=== PATIENT | female | born 1995 | race Caucasian/White ===

== ENCOUNTER 2025-01-02 12:13 | Inpatient (IN) | payer OTHER, SELFPAY ==
[2025-01-02] VITALS (11 sets, daily range): BP systolic 87–116; BP diastolic 62–74; BMI 21.2
--- NOTE | 2025-01-02 07:03 | ED.GENMED ---
History of Present Illness
General
Chief Complaint: Abdominal Symptoms
Source: patient
Exam Limitations: none
Time Seen by Provider: 01/02/25 06:44
Nursing documentation reviewed up to this point in time: agreed with
History of Present Illness
History of Present Illness:
Patient presents to ED secondary to persistent nausea and vomiting, and inability to eat anything for the past 3 days. Patient states that her symptoms started with sore throat, fever, and intermittent cough. Patient's son tested positive for
influenza 2 weeks ago with similar symptoms. Denies chest pain. Denies back pain. Denies abdominal pain. Denies diarrhea. Denies recent travel. Patient does vape regularly, both nicotine and marijuana. In addition, patient currently is on
Suboxone therapy.
Past History
Past History
ED Past Medical History: None
ED Past Surgical History: None
Social History
Tobacco: Smoker
Alcohol: None
Personal: Single
Review of Systems
Review of Systems
Allergies reviewed?: Yes
Constitutional: Reports fever
EENT: Reports sore throat
Respiratory: Reports cough; Denies trouble breathing
Cardiac: Reports no symptoms
ABD/GI: Reports nausea and vomiting; Denies abdominal pain
Musculoskeletal: Reports no symptoms
Skin: Reports no symptoms
Neurological: Reports no symptoms; Denies dizzy or headache
Phy Exam
Physical Exam
Physical Exam:
Physical Exam
General: mild distress, not acutely ill. afebrile
Head: nc/at. eomi
Neck: supple. no meningeal signs. normal posterior pharynx
Heart: s1/s2 regular rate and rhythm, no murmur.
Lungs: no acute respiratory distress. clear bilaterally
Abdomen: normal bowel sounds. not tender. no distention
Neuro: alert and oriented x 3. no focal neurological deficits
Skin: no rash
Psychiatric: well kept. interactive and cooperative
Extremities: no edema. no calf tenderness.
Course
Orders/Labs/Results
Orders:
Orders
01/02/25 07:00
Albuterol Nebs [Ventolin Nebules] 2.5 mg INH R NOW STA
Guaifenesin/Codeine Solution [Robitussin AC] 10 ml PO NOW STA
Pantoprazole [Protonix IV] 40 mg IV NOW STA
Test Result ONCE
01/02/25 07:01
Electrocardiogram (*1) Urgent
Reason for Study: QTc Monitoring
0.9% Sodium Chloride 1000 ml [Nss] 1,000 ml IV BOLUS
Ketorolac [Toradol] 15 mg IV NOW STA
Ondansetron Injectable [Zofran] 4 mg IV NOW STA
01/02/25 07:05
Benzonatate [Tessalon Perles] 100 mg PO NOW STA
01/02/25 07:11
Complete Blood Count/With Diff Urgent
Comprehensive Metabolic Panel Urgent
HCG, Serum Qualitative Screen Urgent
Magnesium Urgent
Influenza A+B Rapid Molecular Urgent
NATHANIEL Source: Nasal Swab
Specimen Description:
01/02/25 07:46
Urinalysis Reflex To Culture Urgent
Date Specimen was Collected: 01/02/25
Time Specimen was Collected: 07:43
Urine Microscopic Reflex Cult Urgent
Urine Culture Urgent
NATHANIEL Source: U
Specimen Description:
Date Specimen was Collected: 01/02/25
Time Specimen was Collected: 07:43
01/02/25 08:08
0.9% Sodium Chloride 500 ml [Nss] 500 ml IV BOLUS
01/02/25 09:29
CR Chest - 2 Views Urgent
Comment:
Reason For Exam: cough/hypoxia
01/02/25 Lunch
Regular
0.9% Sodium Chloride 500 ml [Nss] 500 ml IV 100 mls/hr
01/02/25 11:07
Procalcitonin Urgent
PCT Algorithmm Indication: Respiratory
01/02/25 11:21
Admit/Transfer Patient As Directed
Co-Sign Provider:
Level of Care: Inpatient admission
Assign to:: Medical/Surgical
Physician / Group: Nolberto Ramos - Hospitalists
Diagnosis: Acute influenza B infection, community acquired pneumonia, hypoxia
Reason for Hospitalization: Acute influenza B infection, community acquired pneumonia, hypoxia - Tamiflu, IV
abx, O2
Expected length of stay greater than two midnights?: Yes
ELOS- Estimated Length of Stay in days: 2
I certify the patient meets the requirements for IP care: Yes
PRN Pain Medication Management As Directed
May give lesser potent ordered pain med per pt: Yes
preference::
Protocol:: Medication orders for pain may be administered in a
manner that supports deferring to patient preference
when the pt is:
- Requesting an ordered lesser potent pain medication.
Least to most potent pain medications are defined
as: acetaminophen < NSAID < tramadol < opioids
(morphine, oxycodone, hydromorphone).
- Requesting a lesser dose of the same medication IF
ORDERED.
- Requesting a less intrusive route of administration
if both routes are prescribed by the provider (PO <
IV).
01/02/25 11:22
Code Status As Directed
Resuscitation Status: Full Code
01/02/25 12:20
0.9% Sodium Chloride 1000 ml [Nss] 1,000 ml IV 100 mls/hr
Acetaminophen [Tylenol] 650 mg PO Q4HPRN PRN
Albuterol Nebs [Ventolin Nebules] 2.5 mg INH R Q4HPRN PRN
Benzonatate [Tessalon Perles] 100 mg PO TIDPRN PRN
Bisacodyl [Dulcolax] 10 mg RECTAL N90TGRA PRN
Docusate W/Senna [Senokot-S] 1 tablet PO BIDPRN PRN
Doxycycline [Vibramycin] 100 mg PO Q12
Guaifenesin [Mucinex] 1,200 mg PO Q12
Ondansetron Injectable [Zofran] 4 mg IV Q6HPRN PRN
Oseltamivir Phosphate [Tamiflu] 75 mg PO BID
Pantoprazole [Protonix] 40 mg PO DAILY
Polyethylene Glycol Powder [Miralax] 17 grams PO DAILYPRN PRN
buprenorphine-naloxone 1 film BUCCAL DAILY
01/02/25 12:20
MRSA Screen Routine
NATHANIEL Source: Nose
Specimen Description:
Respiratory Culture/Gram Stain Routine
NATHANIEL Source: Sputum
Specimen Description:
Activity As Directed
Activity Level: As Tolerated
Pneumatic Compression Sleeves As Directed
Type: Knee high
Precautions As Directed
Type of Precautions: Droplet
Vital Signs As Directed
Frequency: Per unit guidelines
Acapella [Rx Pep / Acapela] [RESP] Routine
Rx Incentive Spirometry [RESP] Routine
Frequency: q1h while awake
DX Deep Vein Thrombosis Video Routine
01/02/25 13:00
CefTRIAXone [Rocephin] 1,000 mg IV Q24H
01/03/25 06:00
Basic Metabolic Panel IN AM
Complete Blood Count/With Diff IN AM
01/04/25 06:00
Basic Metabolic Panel IN AM
Complete Blood Count/With Diff IN AM
01/05/25 06:00
Basic Metabolic Panel IN AM
Complete Blood Count/With Diff IN AM
Abnormal Lab Results
01/02/25 01/02/25 01/02/25
07:11 07:46 11:07
WBC 1.6 L* 10^3/uL
(4.8-10.8)
RBC 3.94 L 10^6/uL
(4.20-5.40)
Hct 35.3 L %
(37.0-47.0)
Plt Count 86 L 10^3/uL
(130-400)
MPV 11.8 H fL
(7.4-10.4)
Abs Immat Gran (auto) 0.1 H 10^3/uL
(0-0.05)
Absolute Neuts (auto) 1.2 L 10^3/uL
(1.4-6.5)
Absolute Lymphs (auto) 0.2 L 10^3/uL
(1.2-3.4)
Immature Gran % 4.3 H %
(0-0.5)
Lymphocytes % 12.8 L %
(20.5-51.1)
BUN 23 H mg/dl
(7-17)
Total Protein 6.2 L g/dl
(6.3-8.2)
Procalcitonin 3.32 H* ng/ml
(0.0-0.25)
Urine Ketones 3+ A
(Negative)
Ur Occult Blood Reflex 4+ A
(Negative)
Leukocyte Esterase Rfl 1+ A
(Negative)
Urine RBC 3-6 A /HPF
(0-2)
Urine Albumin (Reflex) 3+ A
(Neg - Trace)
01/02/25 07:11
01/02/25 07:11
Vital Signs
Initial and Last Documented VS:
Initial Vital Signs
Temp Pulse Resp BP Pulse Ox
97.2 F 84 22 100/66 92
01/02/25 06:39 01/02/25 06:39 01/02/25 06:39 01/02/25 06:39 01/02/25 06:39
Last Documented Vital Signs
Temp Pulse Resp BP Pulse Ox
99.9 F 84 22 95/64 97
01/02/25 07:30 01/02/25 06:39 01/02/25 06:39 01/02/25 10:00 01/02/25 13:45
MDM/Problems Addressed
MDM/Problems Addressed:
History and exam consistent with symptoms secondary to influenza B. Unfortunately, patient remains hypotensive and hypoxic, requiring supplemental oxygen. As such, patient will be admitted for further evaluation, including continue IV hydration
along with supplemental oxygen.
CXR reveals b/l pneumonia. Admitting team to order abx.
*EKG
Interpreted by ED Provider?: Yes
EKG Intrepretation Date: 01/02/25
Heart Rate: 80
Rate: normal
Rhythm: sinus
[place]: normal axis
Ischemia: non-specific ST changes
*Critical Care Note
Total Time (30-74mins, 75-104mins- exclusive of procedures): Not Applicable
ED Attending Note
-
Portions of this chart may have been created with voice recognition software.� Occasional wrong word or��sound alike� substitutions may have occurred due to the inherent limitations of voice recognition software.
Discharge Plan
Departure
Patient Disposition: Admit
Date of Disposition: 01/02/25
Time of Disposition: 09:33
Admit to: Telemetry
Presentation/result/management discussed w/ accepting MD/DO: Hospitalist
Discharge Problem:
Influenza B, Dehydration, Hypoxia, Pneumonia
Interventions
Interventions:
*Risk Screen - Suicide Last Done: 01/02/25 06:39
*General Assessment Last Done: 01/02/25 14:07
*Neglect/Abuse Screening Last Done: 01/02/25 06:39
*ED- Fall Risk Assessment Last Done: 01/02/25 14:07
*ED COVID-19 Vaccine History Last Done: 01/02/25 14:07
EP-Jnjomy-Cvxltxlzzr Assessment Last Done: 01/02/25 09:06
[2025-01-02] MEDS: PROTONIX IV 40 MG IV (07:16)
[2025-01-02] MEDS: TORADOL 15 MG IV ×2 (07:17→17:19)
[2025-01-02] MEDS: ZOFRAN 4 MG IV ×2 (07:17→16:47)
[2025-01-02] MEDS: NSS 1000 IV ×3 (07:17→23:53)
[2025-01-02] MEDS: VENTOLIN NEBULES 2.5 MG INH (07:18)
[2025-01-02 07:41] LABS: HCG, Serum Qualitative Screen Negative
[2025-01-02 07:46] LABS: ALT (SGPT) 20 U/L (0-35); AST (SGOT) 22 U/L (14-36); Albumin 3.8 g/dl (3.5-5.0); Alkaline Phosphatase 43 U/L (38-126); Blood Urea Nitrogen 23 mg/dl (7-17); Calcium 8.6 mg/dl (8.4-10.2); Carbon Dioxide 22 mmol/L (22-30); Chloride 103 mmol/L (98-107); Glucose 94 mg/dl (70-99); Magnesium 1.8 mg/dl (1.6-2.3); Potassium 3.8 mmol/L (3.5-5.1); Sodium 138 mmol/L (135-145); Total Bilirubin 0.8 mg/dl (0.2-1.3); Total Protein 6.2 g/dl (6.3-8.2); eGFR > 60.00
[2025-01-02] MEDS: TESSALON PERLES 100 MG PO (07:53)
[2025-01-02 08:15] LABS: Urine Albumin 3+ (Neg - Trace); Urine Bilirubin Negative (Negative); Urine Character Clear (Clear); Urine Color Yellow; Urine Glucose Negative (Negative); Urine Ketone 3+ (Negative); Urine Leukocyte 1+ (Negative); Urine Nitrite Negative (Negative); Urine Occult Blood 4+ (Negative); Urine Urobilinogen 1+ (Neg - 1+)
[2025-01-02 08:17] LABS: % Basophils 0.6 % (0-2); % Immature Granulocytes 4.3 % (0-0.5); % Lymphocytes 12.8 % (20.5-51.1); % Monocytes 7.9 % (1.7-9.3); % Neutrophils 74.4 % (42.2-75.2); Absolute Immature Granulocytes 0.1 10^3/uL (0-0.05); Absolute Lymphocytes 0.2 10^3/uL (1.2-3.4); Absolute Monocytes 0.1 10^3/uL (0.1-0.6); Absolute Neutrophils 1.2 10^3/uL (1.4-6.5); Hematocrit 35.3 % (37.0-47.0); Hemoglobin 12.2 g/dL (12.0-16.0); Mean Corp Hgb Conc. 34.6 g/dL (33.0-37.0); Mean Corpuscular Volume 89.6 fL (81.0-99.0); Mean Platelet Volume 11.8 fL (7.4-10.4); Nucleated Red Blood Cells % 0 %; Platelet Count 86 10^3/uL (130-400); Red Blood Cell Count 3.94 10^6/uL (4.20-5.40); Red Cell Dist. Width 11.9 % (11.5-14.5); White Blood Cell Count 1.6 10^3/uL (4.8-10.8)
[2025-01-02] MEDS: NSS 500 IV ×2 (08:31→10:36)
[2025-01-02 08:39] LABS: Urine Squamous Cell >30 /LPF (Few)
[2025-01-02 08:40] LABS: Urine Amorphous Seen
--- NOTE | 2025-01-02 11:15 | HPS.HSE ---
Family Physician
-
Family Physician: * NONE
Chief Complaint
-
fevers/cough/SOB
History of Present Illness
29 y/o F, hx of prior opioid abuse now maintained on Suboxone, presents to ER with nausea/vomiting and inability to eat for 3 days. Patient reports her 6 year old son was sick with influenza starting 2 week ago. On , she developed an acute
constellation of symptoms including SOB, cough, fevers >101, along with nausea/vomiting. She reports chest and body myalgias. No back pain. No abd pain or diarrhea. No travel. Does admit to ongoing use of Vape and also marijuana.
in ER, found to be hypoxic with multifocal pneumonia - admitted for further evaluation.
Medical History
Past Medical History
Past Medical History: Reports Other (prior opioid abuse now maintained on Suboxone)
Past Surgical History: Reports None
Social History
Tobacco: Smoker
Alcohol: None
Drug: Marijuana
Personal: Partner
Employment: Employed
Family History
Family History: Not pertinent
Allergies / Home Medications
Allergies reflects when Allergies were last updated in [facility].
Home Medications with original date entered in [facility]
Allergy/Medication List:
Allergies
Allergy/AdvReac Type Severity Reaction Status Date / Time
OPIATES Allergy Unknown Uncoded 01/02/25 06:43
Home Medications
Control 1 tab PO DAILY 01/02/25
buprenorphine 2 mg-naloxone 0.5 mg sublingual film 1 film buccal DAILY 01/02/25
Review of Systems
-
A 12 point ROS was completed and negative except as noted: Yes
Physical Exam
Vital Signs
Vital Signs
Temp Pulse Resp BP Pulse Ox
99.9 F 84 22 95/64 96
01/02/25 07:30 01/02/25 06:39 01/02/25 06:39 01/02/25 10:00 01/02/25 10:15
Physical Exam
General: Respiratory Distress (mild)
HEENT: NormoCephalic and Anicteric
Respiratory: Rhonchi
Cardiac: S1/S2 and Regular Rhythm
GI: Non Distended
Neuro: AO x 3
Psych: Calm
Laboratory Results
-
01/02/25 07:11
01/02/25 07:11
Laboratory Results
Total Bilirubin 0.8 mg/dl (0.2-1.3) 01/02/25 07:11
AST 22 U/L (14-36) 01/02/25 07:11
ALT 20 U/L (0-35) 01/02/25 07:11
Alkaline Phosphatase 43 U/L (38-126) 01/02/25 07:11
Data Reviewed
-
Diagnostic Radiology: Report Reviewed by me
Lab Data: Labs Reviewed by me
Impression/Plan
-
Assessment:
Acute hypoxic respiratory insufficiency on 2L NC
Acute Influenza B infection manifesting with GI symptoms
Acute community acquired pneumonia - unknown organisms
- wean O2 as able
- appropriate precautions
- IVF
- start Tamiflu x 5 days
- Start Rocephin, Doxy, day 1. Check sputum culture if able. Check MRSA swab.
- supportive care for pulm symptoms including anti-tussives, mucolytics, prn nebs
- supportive care for GI Symptoms including PPI daily And Zofran prn
Acute leukopenia and thrombocytopenia
- suspect in setting of influenza
- monitor daily CBC
Abnormal UA
- await culture
prior opioid abuse now maintained on Suboxone
- will continue
DVT ppx: SCDs
Code: Full
[2025-01-02 11:57] LABS: Procalcitonin 3.32 ng/ml (0.0-0.25)
[2025-01-02] MEDS: MUCINEX 1200 MG PO ×2 (13:02→20:57)
[2025-01-02] MEDS: PROTONIX 40 MG PO (13:02)
[2025-01-02] MEDS: TAMIFLU 75 MG PO ×2 (13:03→20:57)
[2025-01-02] MEDS: ROCEPHIN 1000 MG IV (13:03)
[2025-01-02] MEDS: VIBRAMYCIN 100 MG PO ×2 (13:03→20:57)
[2025-01-02] MEDS: STERILE WATER FOR INJECTION 10 ML IV (14:23)
[2025-01-02] MEDS: SUBUTEX SL (14:35)
[2025-01-03 07:50] VITALS: BP 124/76
[2025-01-03] MEDS: MUCINEX 1200 MG PO ×2 (08:33→19:36)
[2025-01-03] MEDS: SUBUTEX 2 MG SL (08:33)
[2025-01-03] MEDS: PROTONIX 40 MG PO (08:33)
[2025-01-03] MEDS: TAMIFLU 75 MG PO ×2 (08:33→19:36)
[2025-01-03] MEDS: VIBRAMYCIN 100 MG PO ×2 (08:33→19:36)
[2025-01-03 08:39] LABS: Blood Urea Nitrogen 13 mg/dl (7-17); Calcium 7.4 mg/dl (8.4-10.2); Carbon Dioxide 20 mmol/L (22-30); Chloride 109 mmol/L (98-107); Estimated Creatinine Clearance 112 ml/min; Glucose 81 mg/dl (70-99); Potassium 3.6 mmol/L (3.5-5.1); Sodium 138 mmol/L (135-145); eGFR > 60.00
[2025-01-03 08:43] LABS: Hematocrit 31.2 % (37.0-47.0); Hemoglobin 10.7 g/dL (12.0-16.0); Mean Corp Hgb Conc. 34.3 g/dL (33.0-37.0); Mean Corpuscular Hgb 31.2 pg (27.0-31.0); Mean Platelet Volume 11.8 fL (7.4-10.4); Platelet Count 78 10^3/uL (130-400); Red Blood Cell Count 3.43 10^6/uL (4.20-5.40); Red Cell Dist. Width 12.2 % (11.5-14.5); White Blood Cell Count 2.6 10^3/uL (4.8-10.8)
--- NOTE | 2025-01-03 09:18 | CON.PUL ---
Consultation
Consultation Request
Date/Time Consultation Requested: 01/03/25
Date/Time Consultation Performed: 01/03/25
Performing Provider: Genoveva
Reason for Consultation: Flu PNA
Medical History
-
History of Present Illness:
Patient is a 29-year-old female with previous history of opioid abuse now on Suboxone, former smoker presenting to ER with nausea/vomiting and decreased p.o. intake for the past 3 days. She does report sick contacts at home including her son who
has influenza, she was tested positive on admission. She has ongoing shortness of breath, cough, fevers. She denies any prior history of lung disease in the past. She is a former smoker about 1 pack a day for 15 years. She is currently vaping.
Chest x-ray demonstrating multifocal pneumonia.
Past Medical History
Past Medical History: Other (see list below)
Social History
Tobacco: Smoker (cigarettes x 15 pack years, now vaping NCT and THC)
Alcohol: None
Drug: Former User (on Suboxone)
Family History
Family History: Asthma
Allergies / Home Medications
Allergies
Allergy/AdvReac Type Severity Reaction Status Date / Time
OPIATES Allergy Unknown Uncoded 01/02/25 06:43
Home Medications
�Medication �Instructions �Recorded �Confirmed �Last Taken �Type
Control 1 tab PO DAILY 01/02/25 01/02/25 01/02/25 History
buprenorphine 2 mg-naloxone 0.5 mg 1 film buccal DAILY 01/02/25 01/02/25 01/02/25 History
sublingual film
Review of Systems
-
History Source: Patient
All other systems: Negative unless noted
Vitals / Labs / Diagnostic Testing
Vital Signs
Temp Pulse Resp BP Pulse Ox
98.6 F 55 16 124/76 97
01/03/25 07:50 01/03/25 07:50 01/03/25 07:50 01/03/25 07:50 01/03/25 07:50
Lab Data
01/03/25 07:38
01/03/25 07:38
Microbiology
01/02/25 07:11 Nasal Swab Influenza Types A & B (RITESH) - Final
Influenza B Positive, NAAT
Diagnostic Testing:
Physical Exam
-
HEENT: Normocephalic, Anicteric, Moist Mucous Membranes and Other (poor dentition)
Cardiovascular: S1/S2 and Regular Rhythm
Respiratory: Rhonchi and Non-Labored Respirations
GI: Soft, Non Distended and Non Tender
Neurology: Awake, Alert, Oriented and No Motor Deficits
Skin: Warm, Dry and Good Color
General: Comfortable and Other (NAD)
Assessment
-
Patient is a 29-year-old female with previous history of opioid abuse now on Suboxone, former smoker presenting to ER with nausea/vomiting and decreased p.o. intake for the past 3 days. She does report sick contacts at home including her son who
has influenza, she was tested positive on admission. She has ongoing shortness of breath, cough, fevers. She denies any prior history of lung disease in the past. She is a former smoker about 1 pack a day for 15 years. She is currently vaping.
Chest x-ray demonstrating multifocal pneumonia. We are consulted for evaluation.
Multifocal PNA, FluB positive, cannot r/o superimposed bacterial, PCT elevated
Acute hypoxic respiratory failure
Fever
Abnormal chest x-ray
Moderate to severe pancytopenia
Metabolic acidosis
Hypocalcemia
Conditions present prior to admission
History of IV drug use, now on Suboxone
Former smoker, 15 pack years
Family history of asthma
Plan
Hypoxemia noted on arrival, O2 jacklyn 85%
Currently saturating >90% on 5L
Home O2 evaluation eventually, not known to be on home O2
No prior known history of lung disease is noted-- she is a former smoker and has family history of asthma
Vaping now as well
no prior PFTs for review, at risk for lung disease given current smoking history
Suspect patient has viral and possible superimposed bacterial PNA given elevated PCT
She is treated empirically with Tamiflu and IV antibiotics/IV fluids
She does not have personal history of asthma, currently not wheezing on exam, can hold off on IV steroids
We will change her nebulizers to scheduled as well
Obtain sputum culture if able
Will also check urine Legionella and strep, agree with MRSA screening
Admission CXR obtained indicating mild multifocal patches, likely to blossom in the next 24 hours
We will repeat chest x-ray today
Other imaging reviewed--negative in 2010
If needed, may consider CT chest
No prior history of cardiac disease, no echo for review
Monitor on telemetry
Smoking history noted
Smoking cessation
She has history of IV drug use, no longer actively using
UDS showing +opiate, she is chronically on Suboxone
Monitor for withdrawal signs
Will need outpatient pulmonary evaluation in our office for PFTs and 6MWT
Reviewed with patient
We will follow
Diagnostic Data
Chest X-Ray: 01/02/25- Patchy and nodular opacities bilaterally suspicious for multifocal pneumonia. No pleural effusions. Follow-up imaging recommended to ensure resolution.
01/29/11- No radiographic findings.
CT Scan:
Echo:
PFT's:
Reports and relevant images were personally reviewed.
Total time spent on this consultation __75__ minutes which includes review of history, physical exam, medications, laboratory data, personal review of imaging, extensive review of outpatient records, discussion with care team and respiratory therapy.
[2025-01-03 10:54] LABS: % Basophils 0.4 % (0-2); % Immature Granulocytes 0.8 % (0-0.5); % Lymphocytes 22.5 % (20.5-51.1); % Monocytes 5.4 % (1.7-9.3); % Neutrophils 70.9 % (42.2-75.2); Absolute Lymphocytes 0.6 10^3/uL (1.2-3.4); Absolute Monocytes 0.1 10^3/uL (0.1-0.6); Absolute Neutrophils 1.8 10^3/uL (1.4-6.5); Nucleated Red Blood Cells % 0 %
--- NOTE | 2025-01-03 13:13 | CM ---
Met with patient and her significant other, Lonnie Rahman # [phone]
Pharmacy verified: [facility] @ [address] [facility], [place], [place]
Reported she does not have a Family Physician; provided contact information for the [facility] in [place]
Patient reported that she and Lonnie live in one floor apartment located in her parent's farm[place]; apartment on 1st floor of the home; 4 steps to enter; bath has tub w/shower, grab bar
PLOF: reported she was independent with ADLs prior to present illness; no device with ambulation; has a 6 year old son; drives
NO DME
NO SNF or Home Health utilization history
Significant other will transport home
Plan: Discharge to home when medically stable; no needs anticipated but Case Management will monitor and support if services needed at discharge
[2025-01-03] MEDS: STERILE WATER FOR INJECTION 10 ML IV (13:18)
[2025-01-03] MEDS: ROCEPHIN 1000 MG IV (13:19)
[2025-01-03] MEDS: TESSALON PERLES 100 MG PO (13:25)
[2025-01-03] MEDS: TORADOL 15 MG IV (13:40)
--- NOTE | 2025-01-03 14:14 | W.PN.HOSP.TC ---
Today's Communication/Plan
-
wean O2
repeat CXR
continue Tamiflu/IV Abx
Assessment / Plan
Assessment / Plan
Assessment:
Acute hypoxic respiratory failure, requiring up to 14L NC
Acute Influenza B infection manifesting with GI symptoms
Acute community acquired pneumonia - unknown organisms
- wean O2 as able; as high at 14L this admission. Currently 4L NC
- appropriate precautions
- continue Tamiflu x 5 days
- continue Rocephin, Doxy, day 2. Procal >3.
- check strep/legionella
- check sputum culture if able. MRSA swab pending.
- supportive care for pulm symptoms including anti-tussives, mucolytics, prn nebs
- supportive care for GI Symptoms including PPI daily And Zofran prn
- pulm following; recs appreciated
- repeat CXR today
Acute leukopenia and thrombocytopenia
- suspect in setting of influenza
- monitor daily CBC
Abnormal UA
- culture negative
prior opioid abuse now maintained on Suboxone
- will continue; monitor for withdrawal
DVT ppx: SCDs
Code: Full
Anticipated Discharge: 24 - 48 hours
Subjective/Interval History
-
Date of Service: January 03, 2025
reports chest/abd discomfort with ongoing coughing
now down to 3L (as high as 14L last night)
reports nausea improving, appetite remains low
Objective Data
-
Labs:
Laboratory Results
01/03/25
07:38
WBC 2.6 L
Hgb 10.7 L
Hct 31.2 L
Plt Count 78 L
Sodium 138
Potassium 3.6
Chloride 109 H
Carbon Dioxide 20 L
BUN 13
Creatinine 0.5 L
Glucose 81
Calcium 7.4 L
Vital Signs:
Vital Signs
Temp Pulse Resp BP Pulse Ox
98.6 F 55 16 124/76 99
01/03/25 07:50 01/03/25 07:50 01/03/25 07:50 01/03/25 07:50 01/03/25 09:50
I&O
01/02/25 01/03/25 01/04/25
06:59 06:59 06:59
Intake Total 240 / 240
Balance 240 / 240
Physical Exam
-
General: No Apparent Distress
HEENT: Normocephalic and Atraumatic
Respiratory: Rhonchi; Negative Wheezes
Cardiac: Regular Rhythm and S1/S2
GI: Soft
Genito-urinary: No Costovertebral Tender
Neuro: AO x 3
Hematologic / Lymphatic: No Lymphadenopathy
Psych: Calm
Data Reviewed
-
Total Time Spent with Patient (in minutes): 45
Labs: Labs Reviewed by me
--- NOTE | 2025-01-03 15:23 | PN.CDI ---
CDI
- -
CDI:
Physician Documentation Request
Admit Date: 01/02/25 12:13
Dear Doctor Richard,
Please review the following and provide your response in the progress notes.
Clinical Indicators:
PN, 01/03
#Acute hypoxic respiratory failure, requiring up to 14L NC
#Acute Influenza B infection manifesting with GI symptoms
#Acute community acquired pneumonia - unknown organisms
#...- wean O2 as able; as high at 14L this admission. Currently 4L NC
#Acute leukopenia and thrombocytopenia
#...- suspect in setting of influenza
Laboratory Tests
01/02/25 01/03/25
07:11 07:38
WBC 1.6 L* 2.6 L
Selected Entries
01/02/25
16:50 01/02/25
18:45
Temp 101.6 F H
Pulse 106
Based on the above and your clinical assessment, please Please clarify which of the following most accurately describes the status of the patient's infection:
Sepsis, POA
Localized Infection Only, Without Systemic Illness
- indicate the site/source, such as UTI, pneumonia etc.
Other(please specify)
Sepsis
- Systemic manifestations of infection, with 2 or more SIRS criteria which include:
- Fever >100.9 degrees F or hypothermia < 96.8 degrees F
- Leukocytosis - WBC > 12,000 or leukopenia - WBC < 4,000 or > 10% bands
- Tachycardia > 90 beats per minute
- Tachypnea - RR > 20 breaths per minute or PaCO2 , 32mmHg
Source: Merck Manual 2013
- Indicate the known or suspected organism
- Indicate the known or suspected underlying infection, such as UTI, pneumonia or cellulitis
Severe Sepsis
- Sepsis with associated acute organ dysfunction, such as renal or respiratory failure
- Documentation should indicate the association between the sepsis and the organ dysfunction
Use of terms such as suspected, likely, concern for, or probable (associated with a specific diagnosis that is being evaluated, monitored, or treated as if it exists) are acceptable and can be coded in the inpatient setting, when documented at the
time of discharge.
Thank you,
Corry Umanzor RN BSN CCDS
CDI Specialist
Please contact via tiger text
Please use your independent medical judgment in providing your response.
[2025-01-03 15:35] VITALS: BP 132/58
[2025-01-03] MEDS: VENTOLIN NEBULES 2.5 MG INH ×2 (16:13→19:47)
[2025-01-03 23:54] VITALS: BP 121/72
[2025-01-04] MEDS: ZOFRAN 4 MG IV ×2 (02:30→22:31)
[2025-01-04] MEDS: TESSALON PERLES 100 MG PO ×4 (02:30→22:32)
[2025-01-04 07:15] VITALS: BP 130/69
[2025-01-04] MEDS: VENTOLIN NEBULES 2.5 MG INH ×4 (07:21→19:30)
[2025-01-04] MEDS: SUBUTEX 2 MG SL (08:02)
[2025-01-04] MEDS: TAMIFLU 75 MG PO ×2 (08:02→20:56)
[2025-01-04] MEDS: VIBRAMYCIN 100 MG PO ×2 (08:02→20:56)
[2025-01-04] MEDS: MUCINEX 1200 MG PO ×2 (08:02→20:55)
[2025-01-04] MEDS: TORADOL 15 MG IV ×2 (08:02→14:08)
[2025-01-04] MEDS: PROTONIX 40 MG PO (08:02)
--- NOTE | 2025-01-04 08:39 | W.PN.HOSP.TC ---
Today's Communication/Plan
-
repeat labs tomorrow
continue Abx/Tamiflu
Assessment / Plan
Assessment / Plan
Assessment:
Sepsis POA (tachycardia, fever, leukopenia)
- resolving
Acute hypoxic respiratory failure, requiring up to 14L NC
Acute Influenza B infection manifesting with GI symptoms
Acute community acquired pneumonia - unknown organisms
- wean O2 as able; as high at 14L this admission. Currently 4L NC
- appropriate precautions
- continue Tamiflu x 5 days
- continue Rocephin, Doxy, day 3. Procal >3.
- supportive care for pulm symptoms including anti-tussives, mucolytics, prn nebs
- supportive care for GI Symptoms including PPI daily And Zofran prn
- pulm following; recs appreciated
Acute leukopenia and thrombocytopenia
- suspect in setting of influenza
- monitor daily CBC
Abnormal UA
- culture negative
prior opioid abuse now maintained on Suboxone
- will continue; monitor for withdrawal
DVT ppx: SCDs
Code: Full
Anticipated Discharge: Within 24 hours
Subjective/Interval History
-
Date of Service: January 04, 2025
SOB improved
chest discomfort related to cough improved
now on RA
Objective Data
-
Labs:
Laboratory Results
01/04/25
07:56
WBC Pending
Hgb Pending
Hct Pending
Plt Count Pending
Sodium Pending
Potassium Pending
Chloride Pending
Carbon Dioxide Pending
BUN Pending
Creatinine Pending
Glucose Pending
Calcium Pending
Vital Signs:
Vital Signs
Temp Pulse Resp BP Pulse Ox
98 F 59 16 130/69 97
01/04/25 07:15 01/04/25 07:15 01/04/25 07:15 01/04/25 07:15 01/04/25 07:15
I&O
01/03/25 01/04/25 01/05/25
06:59 06:59 06:59
Intake Total 240 / 240 1560 / 1560
Balance 240 / 240 1560 / 1560
Physical Exam
-
General: No Apparent Distress
HEENT: Normocephalic and Atraumatic
Respiratory: Rhonchi; Negative Wheezes
Cardiac: Regular Rhythm and S1/S2
GI: Soft
Genito-urinary: No Costovertebral Tender
Neuro: AO x 3
Psych: Calm
Data Reviewed
-
Total Time Spent with Patient (in minutes): 42
Labs: Labs Reviewed by me
[2025-01-04 08:55] LABS: % Basophils 0.5 % (0-2); % Immature Granulocytes 2.2 % (0-0.5); % Lymphocytes 31.3 % (20.5-51.1); Absolute Lymphocytes 0.6 10^3/uL (1.2-3.4); Absolute Monocytes 0.1 10^3/uL (0.1-0.6); Absolute Neutrophils 1.1 10^3/uL (1.4-6.5); Hemoglobin 12.5 g/dL (12.0-16.0); Mean Corp Hgb Conc. 34.7 g/dL (33.0-37.0); Mean Corpuscular Hgb 30.8 pg (27.0-31.0); Mean Corpuscular Volume 88.7 fL (81.0-99.0); Mean Platelet Volume 11.1 fL (7.4-10.4); Nucleated Red Blood Cells % 0 %; Platelet Count 111 10^3/uL (130-400); Red Blood Cell Count 4.06 10^6/uL (4.20-5.40); White Blood Cell Count 1.8 10^3/uL (4.8-10.8)
--- NOTE | 2025-01-04 09:08 | W.PN.PUL3 ---
Today's Communication / Plan
-
Feeling better, weaned to RA
CXR showing slight worsening findings but she is clinically improving, can repeat as OP
Continue IV abx, sputum contaminated, not sent, complete empiric course
Encouraged airway clearance, OOB
Can continue nebs/mucinex at discharge
Discharge planning if doing well in 24 hours, following also repeat CBC
We will arrange OP FU
Assessment
-
Patient is a 29-year-old female with previous history of opioid abuse now on Suboxone, former smoker presenting to ER with nausea/vomiting and decreased p.o. intake for the past 3 days. She does report sick contacts at home including her son who
has influenza, she was tested positive on admission. She has ongoing shortness of breath, cough, fevers. She denies any prior history of lung disease in the past. She is a former smoker about 1 pack a day for 15 years. She is currently vaping.
Chest x-ray demonstrating multifocal pneumonia. We are consulted for evaluation.
Multifocal PNA, FluB positive, cannot r/o superimposed bacterial, PCT elevated
Acute hypoxic respiratory failure
Fever
Abnormal chest x-ray
Moderate to severe pancytopenia
Metabolic acidosis
Hypocalcemia
Conditions present prior to admission
History of IV drug use, now on Suboxone
Former smoker, 15 pack years
Family history of asthma
Plan
Hypoxemia noted on arrival, O2 jacklyn 85%
Initially saturating >90% on 5L--she is now weaned to RA
Home O2 evaluation eventually, not known to be on home O2
No prior known history of lung disease is noted-- she is a former smoker and has family history of asthma
Vaping now as well
No prior PFTs for review, at risk for lung disease given current smoking history
Suspect patient has viral and possible superimposed bacterial PNA given elevated PCT
She is treated empirically with Tamiflu and IV antibiotics/IV fluids
She does not have personal history of asthma, currently not wheezing on exam, can hold off on IV steroids
Continue nebulizers scheduled
Sputum culture if able--specimen contaminated
MRSA neg
Admission CXR obtained indicating mild multifocal patches, likely to blossom in the next 24 hours
We will repeat chest x-ray today--reviewed, mildly worsening/she is clinically improving
Other imaging reviewed--negative in 2010
Can repeat imaging as OP
No prior history of cardiac disease, no echo for review
Monitor on telemetry
Smoking history noted
Smoking cessation
She has history of IV drug use, no longer actively using
UDS showing +opiate, she is chronically on Suboxone
Monitor for withdrawal signs
Will need outpatient pulmonary evaluation in our office for PFTs and 6MWT
Reviewed with patient
Discharge planning in next 24 hours
Diagnostic Data
Chest X-Ray: 01/02/25- Patchy and nodular opacities bilaterally suspicious for multifocal pneumonia. No pleural effusions. Follow-up imaging recommended to ensure resolution.
01/29/11- No radiographic findings.
CT Scan:
Echo:
PFT's:
Reports and relevant images were personally reviewed.
Total time spent on this consultation __51__ minutes which includes review of history, physical exam, medications, laboratory data, personal review of imaging, extensive review of outpatient records, discussion with care team and respiratory therapy.
Subjective Data
-
Date of Service:
Date of Service: January 04, 2025
Chief Complaint: Pulmonary Follow Up
Subjective:
Feeling better but not quite back to baseline
Coughing more productively
Weaned to RA
Objective Data
Data Reviewed
Vital Signs / I&O / Oxygen:
Vital Signs
Temp Pulse Resp BP Pulse Ox
98 F 59 16 130/69 97
01/04/25 07:15 01/04/25 07:15 01/04/25 07:15 01/04/25 07:15 01/04/25 07:15
Intake and Output
01/03/25 01/04/2501/05/25
06:59 06:59 06:59
Intake Total 240 / 240 1560 / 1560
Balance 240 / 240 1560 / 1560
SaO2 97
Nasal Cannula flow liters per 3
minute
Physical Exam
General: Comfortable and Other (NAD)
HEENT: Normocephalic, Anicteric, Moist Mucous Membranes and Other (poor dentition)
Cardiovascular: S1-S2 and Regular Rhythm
Respiratory: Rhonchi and Non-Labored Respirations
GI: Soft, Non Distended and Non Tender
Neurology: Awake, Alert, Oriented and No Motor Deficits
Skin: Warm, Dry and Good Color
Labs/Micro/Reports
Lab Data
01/04/25 07:56
Microbiology
01/04/25 03:16 Sputum Respiratory Culture - Final
01/04/25 03:16 Sputum Gram Stain - Final
01/02/25 17:22 Nose MRSA Screen - Final
No Methicillin Resistant Staphylococcus aureus isolated.
01/02/25 07:46 Urine Urine Culture - Final
No Significant Growth
01/02/25 07:11 Nasal Swab Influenza Types A & B (RITESH) - Final
Influenza B Positive, NAAT
[2025-01-04 09:12] LABS: Blood Urea Nitrogen 8 mg/dl (7-17); Calcium 8.2 mg/dl (8.4-10.2); Carbon Dioxide 19 mmol/L (22-30); Chloride 106 mmol/L (98-107); Estimated Creatinine Clearance 112 ml/min; Glucose 86 mg/dl (70-99); Potassium 3.2 mmol/L (3.5-5.1); Sodium 139 mmol/L (135-145); eGFR > 60.00
[2025-01-04] MEDS: STERILE WATER FOR INJECTION 10 ML IV (14:08)
[2025-01-04] MEDS: ROCEPHIN 1000 MG IV (14:08)
[2025-01-04 16:27] VITALS: BP 129/67
[2025-01-04 23:42] VITALS: BP 137/77
[2025-01-05] MEDS: ZOFRAN 4 MG IV (06:04)
[2025-01-05 06:41] LABS: Blood Urea Nitrogen 7 mg/dl (7-17); Calcium 8.4 mg/dl (8.4-10.2); Carbon Dioxide 19 mmol/L (22-30); Chloride 105 mmol/L (98-107); Estimated Creatinine Clearance 112 ml/min; Glucose 91 mg/dl (70-99); Potassium 3.5 mmol/L (3.5-5.1); Sodium 139 mmol/L (135-145); eGFR > 60.00
[2025-01-05 07:02] LABS: Hemoglobin 11.8 g/dL (12.0-16.0); Mean Corp Hgb Conc. 35.8 g/dL (33.0-37.0); Mean Corpuscular Hgb 31.6 pg (27.0-31.0); Mean Corpuscular Volume 88.2 fL (81.0-99.0); Mean Platelet Volume 10.5 fL (7.4-10.4); Platelet Count 148 10^3/uL (130-400); Red Blood Cell Count 3.74 10^6/uL (4.20-5.40); Red Cell Dist. Width 11.9 % (11.5-14.5); White Blood Cell Count 1.9 10^3/uL (4.8-10.8)
[2025-01-05 07:20] VITALS: BP 131/83
[2025-01-05] MEDS: VENTOLIN NEBULES INH (08:08)
[2025-01-05 08:17] LABS: % Basophils 0.5 % (0-2); % Eosinophils 0.5 % (0-6); % Immature Granulocytes 2.6 % (0-0.5); % Lymphocytes 34.5 % (20.5-51.1); % Monocytes 8.8 % (1.7-9.3); % Neutrophils 53.1 % (42.2-75.2); Absolute Immature Granulocytes 0.1 10^3/uL (0-0.05); Absolute Lymphocytes 0.7 10^3/uL (1.2-3.4); Absolute Monocytes 0.2 10^3/uL (0.1-0.6); Nucleated Red Blood Cells % 0 %
[2025-01-05] MEDS: VIBRAMYCIN 100 MG PO (08:57)
[2025-01-05] MEDS: SUBUTEX 2 MG SL (08:57)
[2025-01-05] MEDS: MUCINEX 1200 MG PO (08:57)
[2025-01-05] MEDS: TAMIFLU 75 MG PO (08:57)
[2025-01-05] MEDS: PROTONIX 40 MG PO (08:57)
--- NOTE | 2025-01-05 09:06 | W.PN.PUL3 ---
Today's Communication / Plan
-
Better in terms fo breathing but has nausea complaints, no vomiting
Will try Zofran tablets, so that this can be continued at home
Encouraged OOB/ambulation
We discussed OP FU at our office for next steps
Otherwise, d/c planning per team today
Assessment
-
Patient is a 29-year-old female with previous history of opioid abuse now on Suboxone, former smoker presenting to ER with nausea/vomiting and decreased p.o. intake for the past 3 days. She does report sick contacts at home including her son who
has influenza, she was tested positive on admission. She has ongoing shortness of breath, cough, fevers. She denies any prior history of lung disease in the past. She is a former smoker about 1 pack a day for 15 years. She is currently vaping.
Chest x-ray demonstrating multifocal pneumonia. We are consulted for evaluation.
Multifocal PNA, FluB positive, cannot r/o superimposed bacterial, PCT elevated
Acute hypoxic respiratory failure
Fever
Abnormal chest x-ray
Moderate to severe pancytopenia
Metabolic acidosis
Hypocalcemia
Conditions present prior to admission
History of IV drug use, now on Suboxone
Former smoker, 15 pack years
Family history of asthma
Plan
Hypoxemia noted on arrival, O2 jacklyn 85%, improved
Initially saturating >90% on 5L--she is now weaned to RA
No prior known history of lung disease is noted-- she is a former smoker and has family history of asthma
Vaping now as well
No prior PFTs for review, at risk for lung disease given current smoking history
Suspect patient has viral and possible superimposed bacterial PNA given elevated PCT
She is treated empirically with Tamiflu and IV antibiotics/IV fluids
She does not have personal history of asthma, currently not wheezing on exam, can hold off on IV steroids
Continue nebulizers scheduled
Sputum culture if able--specimen contaminated
MRSA neg
Admission CXR obtained indicating mild multifocal patches, likely to blossom in the next 24 hours
We will repeat chest x-ray today--reviewed, mildly worsening/she is clinically improving
Other imaging reviewed--negative in 2010
Can repeat imaging as OP
No prior history of cardiac disease, no echo for review
Monitor on telemetry
Smoking history noted
Smoking cessation
She has history of IV drug use, no longer actively using
UDS showing +opiate, she is chronically on Suboxone
Monitor for withdrawal signs
Nausea is noted, trial PO zofran to go home
Will need outpatient pulmonary evaluation in our office for PFTs and 6MWT
Reviewed with patient
Discharge planning
Diagnostic Data
Chest X-Ray: 01/02/25- Patchy and nodular opacities bilaterally suspicious for multifocal pneumonia. No pleural effusions. Follow-up imaging recommended to ensure resolution.
01/29/11- No radiographic findings.
CT Scan:
Echo:
PFT's:
Reports and relevant images were personally reviewed.
Total time spent on this consultation __41__ minutes which includes review of history, physical exam, medications, laboratory data, personal review of imaging, extensive review of outpatient records, discussion with care team and respiratory therapy.
Subjective Data
-
Date of Service:
Date of Service: January 05, 2025
Chief Complaint: Pulmonary Follow Up
Subjective:
Better today in terms of SOB but still feels nauseous
This is not causing her any trouble w/ PO intake
She notes that she gets this way anytime she is ill
Objective Data
Data Reviewed
Vital Signs / I&O / Oxygen:
Vital Signs
Temp Pulse Resp BP Pulse Ox
98.4 F 59 16 131/83 97
01/05/25 07:20 01/05/25 07:20 01/05/25 07:20 01/05/25 07:20 01/05/25 07:20
Intake and Output
01/04/25 01/05/25 01/06/25
06:59 06:59 06:59
Intake Total 1560 / 1560 480 / 480
Balance 1560 / 1560 480 / 480
SaO2 97
Nasal Cannula flow liters per 3
minute
Physical Exam
General: Comfortable and Other (NAD)
HEENT: Normocephalic, Anicteric, Moist Mucous Membranes and Other (poor dentition)
Cardiovascular: S1-S2 and Regular Rhythm
Respiratory: Wheeze (slight, basilar) and Non-Labored Respirations
GI: Soft, Non Distended and Non Tender
Neurology: Awake, Alert, Oriented and No Motor Deficits
Skin: Warm, Dry and Good Color
Labs/Micro/Reports
Lab Data
01/05/25 05:22
01/05/25 05:22
Microbiology
01/04/25 03:16 Sputum Respiratory Culture - Final
01/04/25 03:16 Sputum Gram Stain - Final
01/02/25 17:22 Nose MRSA Screen - Final
No Methicillin Resistant Staphylococcus aureus isolated.
01/02/25 07:46 Urine Urine Culture - Final
No Significant Growth
01/02/25 07:11 Nasal Swab Influenza Types A & B (RITESH) - Final
Influenza B Positive, NAAT
[2025-01-05] MEDS: VENTOLIN NEBULES 2.5 MG INH (11:18)
[2025-01-05] MEDS: COMPAZINE 5 MG IV (12:02)
[2025-01-05] MEDS: ROCEPHIN 1000 MG IV (12:02)
[2025-01-05] MEDS: STERILE WATER FOR INJECTION 10 ML IV (12:03)
--- NOTE | 2025-01-05 14:02 | W.PN.HOSP.TC ---
Today's Communication/Plan
-
dc home
Assessment / Plan
Assessment / Plan
Assessment:
Sepsis POA (tachycardia, fever, leukopenia)
- resolving
Acute hypoxic respiratory failure, requiring up to 14L NC
Acute Influenza B infection manifesting with GI symptoms
Acute community acquired pneumonia - unknown organisms
- wean O2 as able; as high at 14L this admission. Currently room air.
- appropriate precautions
- continue Tamiflu through 01/07
- continue Rocephin, Doxy, day 12/26. Procal >3.
- supportive care for pulm symptoms including anti-tussives, mucolytics, prn nebs
- supportive care for GI Symptoms including PPI daily And Zofran prn
- pulm follow up
Acute leukopenia and thrombocytopenia
- suspect in setting of influenza
- monitor daily CBC
Abnormal UA
- culture negative
prior opioid abuse now maintained on Suboxone
- will continue; monitor for withdrawal
DVT ppx: SCDs
Code: Full
Anticipated Discharge: Today
Subjective/Interval History
-
Date of Service: January 05, 2025
feeling better no complaints
Objective Data
-
Labs:
Laboratory Results
01/05/25
05:22
WBC 1.9 L*
Hgb 11.8 L
Hct 33.0 L
Plt Count 148 D
Sodium 139
Potassium 3.5
Chloride 105
Carbon Dioxide 19 L
BUN 7
Creatinine 0.5 L
Glucose 91
Calcium 8.4
Vital Signs:
Vital Signs
Temp Pulse Resp BP Pulse Ox
98.4 F 72 16 131/83 97
01/05/25 07:20 01/05/25 11:20 01/05/25 07:20 01/05/25 07:20 01/05/25 07:20
I&O
01/04/25 01/05/25 01/06/25
06:59 06:59 06:59
Intake Total 1560 / 1560 480 / 480
Balance 1560 / 1560 480 / 480
Physical Exam
-
General: No Apparent Distress
HEENT: Normocephalic and Atraumatic
Respiratory: Negative Wheezes
Cardiac: Regular Rhythm and S1/S2
GI: Soft
Genito-urinary: No Costovertebral Tender
Neuro: AO x 3
Psych: Calm
Data Reviewed
-
Total Time Spent with Patient (in minutes): 42
Labs: Labs Reviewed by me
--- NOTE | 2025-01-05 14:08 | W.DS.TRANS ---
DC Summary - Counselor Supervisor
-
Discharge Instructions:
Discharge Diagnosis/Procedures influenza A infection. Multifocal pneumonia (
community acquired pneumonia)
Diet Regular
Activity As tolerated
Instructions:
Stand-Alone Forms:
Changes to Home Medications: No
Discharge Medications:
DC Medications w/original date entered in [employer]
Control 1 tab PO DAILY 01/02/25
buprenorphine 2 mg-naloxone 0.5 mg sublingual film 1 film buccal DAILY 01/02/25
acetaminophen 325 mg tablet 650 mg (2 x 325 mg) PO Q4HPRN PRN mild pain/RICHARDSON/temp> 100.4F #100 tabs 01/05/25
albuterol sulfate 2.5 mg/3 mL (0.083 %) solution for nebulization 2.5 mg (3 mL) inhalation R QID PRN SOB/wheezing #75 mL 01/05/25
benzonatate 100 mg capsule 100 mg PO TIDPRN PRN cough #20 caps 01/05/25
cefdinir 300 mg capsule 300 mg PO BID #20 caps 01/05/25
doxycycline hyclate 100 mg capsule 100 mg PO Q12 #21 caps 01/05/25
guaifenesin 600 mg tablet, extended release 12 hr 1,200 mg (2 x 600 mg) PO Q12 #20 tabs 01/05/25
ondansetron HCl 4 mg tablet 4 mg PO Q8HPRN PRN nausea #20 tabs 01/05/25
oseltamivir 75 mg capsule 75 mg PO BID #5 caps 01/05/25
Home Medication Changes
Pending Results: No
Total time spent discharging patient (in min): 42
--- NOTE | 2025-01-05 14:44 | CM ---
Reviewed the chart notes. Patient for discharge to home today. Significant other to provide transportation. CM continues to be available to patient/family and is monitoring medical plan for needs at discharge.
Plan: Discharge to home today.
[2025-01-05 15:41] VITALS: BP 116/70
== END 2025-01-05 17:02 | disposition home or self-care (01) | DRG 871 ==
LOC: 2 NORTH 12:13
PROVIDERS: ADMITTING PHYSICIAN Internal Medicine; CONSULT PHYSICIAN Internal Medicine; EMERGENCY PHYSICIAN Emergency Medicine
DX: A41.89 Other specified sepsis (principal); J10.08 Influenza due to other identified influenza virus with other specified pneumonia; J18.9 Pneumonia, unspecified organism; J96.01 Acute respiratory failure with hypoxia; D61.818 Other pancytopenia; E87.20 Acidosis, unspecified; F17.290 Nicotine dependence, other tobacco product, uncomplicated; F11.10 Opioid abuse, uncomplicated; D69.59 Other secondary thrombocytopenia; J10.1 Influenza due to other identified influenza virus with other respiratory manifestations
CPT/HCPCS: 71046; 80048; 80053; 81003; 81015; 83735; 84145; 84703; 85025; 87070; 87086; 87205; 87449; 87502; 87899; 93005; 94640; 96361; 96374; 96375; 99285